=== PATIENT | female | born 1995 | race Caucasian/White ===

== ENCOUNTER 2016-05-07 12:20 | Emergency (ER) | payer OTHER ==
[2016-05-07] MEDS ORDERED: oxyCODONE/Acetamin 5/325 MG* TAB PO ONE (14:28)
[2016-05-07] MEDS ORDERED: Ondansetron ODT TAB* 4 MG ONE (14:28)
[2016-05-07] MEDS ORDERED: oxyCODONE/Acetamin 5/325 MG* TAB ONE (14:28)
[2016-05-07] MEDS ORDERED: Ondansetron ODT TAB* 4 MG PO ONE (14:28)
[2016-05-07 16:57] LABS: Urine Bacteria 1+ (Absent); Urine Bilirubin Negative (Negative); Urine Glucose Negative (Negative); Urine Nitrite Negative (Negative)
[2016-05-07 17:03] LABS: Hematocrit 45 % (35-47); Hemoglobin 15.5 g/dl (12.0-16.0); Mean Corpuscular HGB Conc 34 g/dl (31-36); Mean Corpuscular Hemoglobin 32 pg (27-31); Mean Corpuscular Volume 93 fL (80-97); Mean Platelet Volume 9 um3 (7.4-10.4); Red Blood Count 4.87 10^6/ul (4.0-5.4); Red Cell Distribution Width 13 % (10.5-15); White Blood Count 7.7 10^3/ul (3.5-10.8)
[2016-05-07 17:20] LABS: Manual Entry Verification SAM0057; UR Preg Internal Control QC Line Present
[2016-05-07 17:24] LABS: Albumin 4.1 g/dL (3.2-5.2); BUN/Creatinine Ratio 12.5 (8-20); Calcium 9.3 mg/dL (8.6-10.3); EGFR African American 115.4 (>60); EGFR Non-African American 89.7 (>60); Potassium 3.6 mmol/L (3.5-5.0); Total Bilirubin 0.5 mg/dL (0.2-1.0); Total Protein 7.1 g/dL (6.4-8.9)
[2016-05-07] MEDS ORDERED: NS 0.9% 1000 ML* 1,000 ML IV ONE (17:55)
[2016-05-07] MEDS ORDERED: DICYCLOMINE HCL* 20 MG/2 ML VIAL IM ONE (17:55)
[2016-05-07] MEDS ORDERED: Ketorolac INJ* 30 MG/ML 1 ML VIAL IV PUSH ONE (18:42)
--- NOTE | 2016-05-07 18:43 | ED ---
Abdominal Pain/Female - HPI Summary HPI Summary: Patient presents for evaluation of abdominal pain. Started 2 days ago and felt as if it was her IBS. Resolved for 1 day, then recurred in the L side/LLQ. Went to the PCP and found to be febrile. Had some associated diarrhea, but denied any UTI sx or problems with BM. Denies recent antibiotics, antipyretics , heavy gluten intake to exacerbate her Celiac disease. Sent for evaluation from PCP office. - History of Current Complaint Chief Complaint: EDGeneral Stated Complaint: LT SIDE ABD PAIN/FEVER Time Seen by Provider: 05/07/16 16:29 Hx Obtained From: Patient, Family/Snow Removal/Plowing - Parents Onset/Duration: Gradual Onset, Lasting Days Timing: Intermittent Episode Lasting Pain Intensity: 0 Allergies/Adverse Reactions: Allergies Allergy/AdvReac Type Severity Reaction Status Date / Time No Known Allergies Allergy Verified 05/07/16 16:17 PMH/Surg Hx/FS Hx/Imm Hx Infectious Disease History: No Infectious Disease History: Denies: Traveled Outside the [place] in Last 30 Days - Social History Alcohol Use: Occasionally Alcohol Amount: WINE LAST NIGHT - GLASS Substance Use Type: Reports: None Smoking Status (MU): Never Smoked Tobacco Review of Systems Positive: Fever Positive: Abdominal Pain, Diarrhea, Nausea. Negative: Vomiting Genitourinary: Negative All Other Systems Reviewed And Are Negative: Yes Physical Exam Triage Information Reviewed: Yes Vital Signs On Initial Exam: Initial Vitals Temp Pulse Resp BP Pulse Ox 101.0 F 115 20 124/94 100 05/07/16 12:26 05/07/16 12:26 05/07/16 12:26 05/07/16 12:26 05/07/16 12:26 Vital Signs Reviewed: Yes Appearance: Positive: Well-Appearing, Well-Nourished, Pain Distress Skin: Positive: Warm, Skin Color Reflects Adequate Perfusion Eyes: Positive: Normal, EOMI, REANNA ENT: Positive: Normal ENT inspection, Hearing grossly normal Neck: Positive: Supple Respiratory/Lung Sounds: Positive: Clear to Auscultation, Breath Sounds Present Cardiovascular: Positive: Normal, RRR, Pulses are Symmetrical in both Upper and Lower Extremities, Tachycardia Abdomen Description: Positive: No Organomegaly, Soft, CVA Tenderness (L), Other : - TTP to the LLQ and L flank. Negative: Bruit, CVA Tenderness (R), Distended , Guarding, Hernia @, Hepatomegaly Pelvic Exam: Positive: external exam normal Musculoskeletal: Positive: Normal, Strength/ROM Intact Neurological: Positive: Normal, Sensory/Motor Intact, Alert, Oriented to Person Place, Time, CN Intact II-III, Reflexes Intact, NV Bundle Intact Distally, Normal Gait - [place] Coma Scale Coma Scale Total: 15 Diagnostics - Vital Signs Vital Signs Temp Pulse Resp BP Pulse Ox 05/07/16 18:00 96 18 112/66 97 05/07/16 17:45 91 14 98 05/07/16 17:30 102 18 118/67 97 05/07/16 17:15 92 16 97 05/07/16 17:00 94 17 118/74 98 05/07/16 16:45 95 13 97 05/07/16 16:30 90 18 120/65 97 05/07/16 16:20 101 126/80 96 05/07/16 16:19 103 96 05/07/16 15:22 99.6 F 109 20 135/81 98 05/07/16 14:21 101.8 F 109 20 134/75 100 05/07/16 13:26 101.1 F 108 20 116/72 100 05/07/16 12:26 101.0 F 115 20 124/94 100 - Laboratory Lab Results: Lab Results 05/07/16 05/07/16 05/07/16 Range/Units 16:10 16:53 16:53 WBC 7.7 (3.5-10.8) 10^3/ul RBC 4.87 (4.0-5.4) 10^6/ul Hgb 15.5 (12.0-16.0) g/dl Hct 45 (35-47) % MCV 93 (80-97) fL MCH 32 H (27-31) pg MCHC 34 (31-36) g/dl RDW 13 (10.5-15) % Plt Count 189 (150-450) 10^3/ul MPV 9 (7.4-10.4) um3 Neut % (Auto) 86.6 H (38-83) % Lymph % (Auto) 7.7 L (25-47) % [place] % (Auto) 5.1 (1-9) % Eos % (Auto) 0.1 (0-6) % Baso % (Auto) 0.5 (0-2) % Absolute Neuts (auto) 6.6 (1.5-7.7) 10^3/ul Absolute Lymphs (auto) 0.6 L (1.0-4.8) 10^3/ul Absolute Monos (auto) 0.4 (0-0.8) 10^3/ul Absolute Eos (auto) 0 (0-0.6) 10^3/ul Absolute Basos (auto) 0 (0-0.2) 10^3/ul Absolute Nucleated RBC 0.01 10^3/ul Nucleated RBC % 0.1 Sodium 132 L (133-145) mmol/L Potassium 3.6 (3.5-5.0) mmol/L Chloride 103 (101-111) mmol/L Carbon Dioxide 21 L (22-32) mmol/L Anion Gap 8 (2-11) mmol/L BUN 10 (6-24) mg/dL Creatinine 0.80 (0.51-0.95) mg/dL Est GFR ( Amer) 115.4 (>60) Est GFR (Non-Af Amer) 89.7 (>60) BUN/Creatinine Ratio 12.5 (8-20) Glucose 81 (70-100) mg/dL Calcium 9.3 (8.6-10.3) mg/dL Total Bilirubin 0.50 (0.2-1.0) mg/dL AST 16 (13-39) U/L ALT 11 (7-52) U/L Alkaline Phosphatase 37 (34-104) U/L Total Protein 7.1 (6.4-8.9) g/dL Albumin 4.1 (3.2-5.2) g/dL Globulin 3.0 (2-4) g/dL Albumin/Globulin Ratio 1.4 (1-3) Lipase 15 (11.0-82.0) U/L Urine Color Yellow Urine Appearance Clear Urine pH 5.0 (5-9) Ur Specific [place] 1.010 (1.010-1.030) Urine Protein Negative (Negative) Urine Ketones 1+ H (Negative) Urine Blood 1+ H (Negative) Urine Nitrate Negative (Negative) Urine Bilirubin Negative (Negative) Urine Urobilinogen Negative (Negative) Ur Leukocyte Esterase Trace H (Negative) Urine WBC (Auto) Trace(0-5/hpf) (Absent) Urine RBC (Auto) 1+(3-5/hpf) H (Absent) Ur Squamous Epith Cells Present H (Absent) Urine Bacteria 1+ H (Absent) Urine Glucose Negative (Negative) Urine Test Negative (Negative) Result Diagrams: 05/07/16 16:53 05/07/16 16:53 Lab Statement: Any lab studies that have been ordered have been reviewed, and results considered in the medical decision making process. Re-Evaluation - Re-Evaluation Second Eval Change: Unchanged - Patient and mother are now electing for CT due to lack of acute findings on ultrasound. Abdominal Pain Fem Course/Dx - Diagnoses Differential Diagnosis: Positive: Diverticulitis, Irritable Bowel Syndrome, Ovarian Cyst, Renal Colic, Urinary Tract Infection, Other - Unclear if this is UTI, pyelonephritis, diveriticulitis. The family and patient are deferring CT and would instead opt for ultrasound of pelvis and LLQ/flank. IVF and supportive care given while here. Provider Diagnoses: Abdominal pain Discharge - Discharge Plan Condition: Improved Disposition: HOME Patient Education Materials: Acute Diarrhea (ED), Mesenteric Adenitis (ED) Referrals: Wenceslao Sandoval MD [Primary Care Provider] -
--- NOTE | 2016-05-07 19:38 | RAD ---
INDICATION: Left-sided abdominal pain COMPARISON: None TECHNIQUE: Longitudinal and transverse scans of the abdomen were obtained. Doppler interrogation of the hepatic and portal venous system was performed. FINDINGS: Liver: The liver is normal in size and echogenicity. There are no focal masses. The liver measures 17.3 cm in cephalocaudal dimension. Vessels: There is normal hepatic and portal venous flow. Bile ducts: There is no evidence of intrahepatic or extrahepatic ductal dilatation. The common duct measures 0.2 cm. Gallbladder: The sonographic appearance of the gallbladder is normal. There is no evidence of cholelithiasis, thickening of the gallbladder wall, or pericholecystic fluid. Pancreas: The visualized portions of the pancreas are normal Spleen:The spleen is normal in size and echogenicity. The spleen measures 10.9 x 4.2 x 10.5 cm. Kidneys: The kidneys are normal in size and echogenicity. There are no masses or calculi. There is no evidence of hydronephrosis. The right kidney measures 9.2 x 3.6 x 4.9 cm and the left kidney measures 11.1 x 5.3 x 5.2 cm. IVC and aorta: The aorta and superior vena cava appear normal. Fluid: There is no ascites. Other: Imaging at the site of tenderness in left lower quadrant shows no abnormalities. IMPRESSION: NEGATIVE EXAMINATION.
--- NOTE | 2016-05-07 22:00 | RAD ---
INDICATION: Left pelvic pain COMPARISON: Complete abdominal sonogram same date TECHNIQUE: Longitudinal and transverse transabdominal scans of the pelvis were obtained. The patient declined transvaginal imaging FINDINGS: Uterus: The uterus is normal in size. There are no focal masses. The uterus measures 8.4 x 3.4 x 5.7 cm. Endometrial thickness: The endometrial thickness is measured at 0.3 cm. . Free fluid: There is no significant free fluid . Ovaries: The ovaries are normal in size. The right ovary measures 2.1 x 1.5 x 1.2 cm. The left ovary measures 2.2 x 1.6 x 1.4 cm. . Doppler interrogation demonstrates flow to each ovary. Other: None IMPRESSION: NORMAL STUDY.
[2016-05-07] MEDS ORDERED: Iohexol 300* (CONTRAST) 10 ML SDV IV ONE (22:02)
[2016-05-08 01:53] VITALS: BP 124/71
--- NOTE | 2016-05-08 07:47 | RAD ---
CLINICAL HISTORY: Abdominal pain and fever COMPARISON: Same day pelvic ultrasound that did not show any acute abnormalities. TECHNIQUE: Contrast enhanced CT examination of the abdomen and pelvis from the lung bases through the initial tuberosities. The patient received 79 mL Omnipaque 300 intravenously prior to imaging.The patient received oral contrast as well prior to imaging. FINDINGS: VISUALIZED LUNG BASES: The visualized lung bases are grossly clear. There is no pleural effusion. ABDOMEN AND PELVIS: The liver, spleen, pancreas and adrenal glands are grossly normal in appearance. The gallbladder is normal. The kidneys are normal in appearance without focal mass, calcification or signs of hydronephrosis. There are contrast has progressed as far as the descending colon. The small and large bowel are not distended. The patient's normal appendix is identified in the right lower quadrant with contrast in the lumen (coronal image 50) air-fluid levels are noted in the distal colon and rectum. There is no gross retroperitoneal or mesenteric lymphadenopathy. Depicted best on the sagittal view images (image 67 of 120 and also on the coronal plane image 39 of 85) there are mildly enlarged left adnexal and periuterine veins. The left ovarian vein is slightly enlarged measuring just under 8 mm in diameter (image 30 of 86). There is no appearance of pathologic compression of the left renal vein or of the left common iliac vein. The abdominal aorta and iliac arteries are normal in course and diameter. There are no sinister bone lesions. IMPRESSION: 1. Air-fluid levels in the colon and mesenteric adenitis could be seen in the setting of infectious or inflammatory colitis. 2. Mildly enlarged left ovarian vein leads into left adnexal and periuterine veins that are engorged and top normal in diameter. Such an appearance can be seen in the setting of pelvic congestion syndrome, although this patient is not the correct demographic for such a condition.
== END 2016-05-08 01:56 | disposition home or self-care (01) ==
LOC: ED 12:20
DX: R10.32 Left lower quadrant pain (principal)
CPT/HCPCS: 36415; 74177; 76700; 76856; 80053; 81003; 81015; 81025; 83690; 85025; 87086; 96360; 96372; 99283; A9270-GY; J0500; J1885; Q9967

== ENCOUNTER 2016-07-27 12:08 | Emergency (ER) | payer OTHER ==
[2016-07-27] MEDS ORDERED: Aspirin Low Dose CHEW TAB* 81 MG PO ONE (15:14)
--- NOTE | 2016-07-27 15:36 | RAD ---
Indication: Chest tightness, dizziness intermittent for several weeks however worse today. History of seasonal allergies. Comparison: May 07, [address] Technique: Upright AP 1520 hours Report: Patchy alveolar consolidation in the RIGHT mid to lower lung zone most confluent at the peripheral lung base. Negative for volume loss. Negative for pleural effusion or pneumothorax. The heart, pulmonary vasculature, and mediastinal contours are unremarkable. IMPRESSION: Patchy alveolar consolidation at the RIGHT mid to lower lung zone most consistent with pneumonia given absence of volume loss to favor atelectasis. Correlate with clinical assessment.
[2016-07-27 15:48] LABS: Hematocrit 44 % (35-47); Hemoglobin 14.8 g/dl (12.0-16.0); Mean Corpuscular HGB Conc 34 g/dl (31-36); Mean Corpuscular Hemoglobin 31 pg (27-31); Mean Corpuscular Volume 93 fL (80-97); Mean Platelet Volume 9 um3 (7.4-10.4); Red Blood Count 4.72 10^6/ul (4.0-5.4); Red Cell Distribution Width 13 % (10.5-15); White Blood Count 10.5 10^3/ul (3.5-10.8)
[2016-07-27 16:09] LABS: Albumin 4.6 g/dL (3.2-5.2); BUN/Creatinine Ratio 9.9 (8-20); Calcium 10.4 mg/dL (8.6-10.3); EGFR African American 98.5 (>60); EGFR Non-African American 76.6 (>60); Globulin 3.5 g/dL (2-4); Potassium 3.3 mmol/L (3.5-5.0); Total Bilirubin 0.6 mg/dL (0.2-1.0); Total Protein 8.1 g/dL (6.4-8.9)
[2016-07-27] MEDS ORDERED: Azithromycin TAB* 250 MG PO ONE (17:47)
[2016-07-27 18:20] VITALS: BP 124/68
--- NOTE | 2016-07-27 22:07 | ED ---
Tolu Church Alok, scribed for Rene Edmonds MD on 07/27/16 at 1541 . HPI Chest Pain - HPI Summary HPI Summary: 21 y/o female presents to the ED with CP on and off for the last two weeks. Pt states that this CP worsened yesterday from chest tightness to a mild pain and has been constant since this morning. Pt also notes SOB and dizziness. Pt denies dyspnea when inhaling but notes pain when lungs are fully expanded. PMHx includes asthma. Pt tired using her inhaler which worsened her pain. Pt denies cough or rhinorrhea. Pt denies lower extremity pain or edema. Pt is on BCP which make her menstrual periods seasonal; Her LMP was 1.5 months ago and she is due for the next in 2.5 months. Pt denies tobacco, recent travel, recent URI , or PSHx. - History of Current Complaint Chief Complaint: EDShortnessOfBreath Time Seen by Provider: 07/27/16 15:14 Hx Obtained From: Patient Onset/Duration: Started Weeks Ago, Atraumatic, Still Present, Worse Since - Yesterday Timing: Constant - Since this morning Initial Severity: Moderate Current Severity: Moderate Character: Tightness Aggravating Factor(s): Other: - Inhaler Associated Signs and Symptoms: Positive: Chest Pain, Dizziness, Shortness of Breath - Allergy/Home Medications Allergies/Adverse Reactions: Allergies Allergy/AdvReac Type Severity Reaction Status Date / Time No Known Allergies Allergy Verified 05/07/16 16:17 PMH/Surg Hx/FS Hx/Imm Hx Endocrine/Hematology History: Denies: Hx Diabetes Cardiovascular History: Denies: Hx Hypertension Respiratory History: Reports: Hx Asthma Infectious Disease History: Denies: Traveled Outside the [place] in Last 30 Days - Family History Known Family History: Negative: Cardiac Disease, Hypertension, Diabetes - Social History Alcohol Use: Occasionally Alcohol Amount: WINE LAST NIGHT - GLASS Substance Use Type: Reports: None Smoking Status (MU): Never Smoked Tobacco Review of Systems Negative: Fever, Chills Negative: Erythema Negative: Sore Throat, Other - rhinorrhea Positive: Chest Pain Positive: Shortness Of Breath. Negative: Cough Negative: Abdominal Pain, Vomiting, Nausea Negative: dysuria, hematuria Negative: Myalgia, Edema Negative: Rash Neurological: Other - Dizziness All Other Systems Reviewed And Are Negative: Yes Physical Exam - Summary Physical Exam Summary: Constitutional: Well-developed, Well-nourished, Alert. Visibly upset and tearful. High suspicion for anxiety induced symptoms. Skin: Warm, Dry HENT: Normocephalic; Atraumatic Eyes: Conjunctiva normal Neck: Musculoskeletal ROM normal neck. (-) JVD, (-) Stridor, (-) Tracheal deviation Cardio: Rhythm regular, rate normal, Heart sounds normal; Intact distal pulses; The pedal pulses are 2+ and symmetric. Radial pulses are 2+ and symmetric. (-) Murmur Pulmonary/Chest wall: Effort normal. (-) Respiratory distress, (-) Wheezes, (-) Rales Abd: Soft, (-) Tenderness, (-) Distension, (-) Guarding, (-) Rebound Musculoskeletal: (-) Edema Lymph: (-) Cervical adenopathy Neuro: Alert, Oriented x3 Psych: Mood and affect Normal Triage Information Reviewed: Yes Vital Signs On Initial Exam: Initial Vitals Temp Pulse Resp BP Pulse Ox 98.4 F 72 20 140/79 100 07/27/16 12:15 07/27/16 12:15 07/27/16 12:15 07/27/16 12:15 07/27/16 12:15 Vital Signs Reviewed: Yes Diagnostics - Vital Signs Vital Signs Temp Pulse Resp BP Pulse Ox 07/27/16 13:37 99.2 F 69 20 123/69 100 07/27/16 12:15 98.4 F 72 20 140/79 100 - Laboratory Result Diagrams: 07/27/16 15:30 07/27/16 15:30 Lab Statement: Any lab studies that have been ordered have been reviewed, and results considered in the medical decision making process. - Radiology CXR Xray Interpretation: Positive (See Comments) - IMPRESSION: Patchy alveolar consolidation at the RIGHT mid to lower lung zone most consistent with pneumonia given absence of volume loss to favor atelectasis. Correlate with clinical assessment. Radiology Interpretation Completed By: Radiologist - EKG 1622 Cardiac Rate: Other Rate - 65 bpm. Sinus Arrhythmia EKG Interpretation: No STEMI Chest Pain Course/Dx - Diagnoses Provider Diagnoses: Anxiety, Community acquired pneumonia Discharge - Discharge Plan Condition: Stable Disposition: HOME Prescriptions: Azithromycin TAB* [Zithromax TAB (Z-JONH) 250 mg #6 tabs] 250 mg PO DAILY #4 tab Patient Education Materials: Bacterial Pneumonia (ED), Anxiety (ED) Forms: *Work Release Referrals: Wenceslao Sandoval MD [Primary Care Provider] - 2 Days Additional Instructions: Please follow up with your primary care provider in two days The documentation as recorded by the Tolu guy Alok accurately reflects the service I personally performed and the decisions made by me, Rene Edmonds MD.
== END 2016-07-27 18:33 | disposition home or self-care (01) ==
LOC: ED 12:08
DX: J18.9 Pneumonia, unspecified organism (principal); R07.9 Chest pain, unspecified; R42 Dizziness and giddiness; R06.02 Shortness of breath; F41.9 Anxiety disorder, unspecified
CPT/HCPCS: 36415; 71010; 80053; 83605; 84484; 85025; 85379; 93005; 99282; A9270-GY